=== PATIENT | female | born 1985 | race American Indian/Alaskan Native ===

== ENCOUNTER 2018-09-15 18:52 | Emergency (ER) | payer OTHER ==
[2018-09-15] MEDS ORDERED: NACL 0.9% 1000 ML 1,000 ML IV ONE ×2 (19:55→20:35)
[2018-09-15] MEDS ORDERED: TORADOL IV ONE (20:07)
[2018-09-15] MEDS ORDERED: ZOFRAN IV ONE (20:07)
[2018-09-15 20:34] LABS: Basophils # (Auto) 0.1 K/mm3 (0.0-0.1); Basophils % (Auto) 0.4 % (0.0-1.8); Hematocrit 41.5 % (30.3-42.9); Hemoglobin 13.7 gm/dl (10.1-14.3); Lymphocytes % (Auto) 6.9 % (13.4-35.0); Mean Corpuscular HGB Conc 33 % (30-34); Mean Corpuscular Volume 89 fl (79-97); Monocytes % (Auto) 7.4 % (0.0-7.3); Platelet Count 354 K/mm3 (140-440); Red Blood Count 4.66 M/mm3 (3.65-5.03); Red Cell Distribution Width 14.3 % (13.2-15.2)
--- NOTE | 2018-09-15 20:35 | Emergency Department Report ---
ED General Adult HPI - General Chief complaint: Nausea/Vomiting/Diarrhea Stated complaint: ABD PAIN/N/V/D Time Seen by Provider: 09/15/18 19:58 Source: EMS Mode of arrival: Wheelchair Limitations: No Limitations - History of Present Illness Initial comments: Patient is a 33-year-old femalePast medical history who presents with nausea vomiting and diarrhea as being going on for the last couple of hours. Patient states that she drinks some bad orange soda and since then she's been having multiple bouts of emesis. She also states that she has some abdominal pain as generalized doesn't radiate anywhere it's intermittent it is a 10 out of 10 pain. Patient has no chest pain or no shortness of breath. Her vomitus is nonbloody nonbilious. Severity scale (0 -10): 10 - Related Data Previous Rx's Medication Instructions Recorded Last Taken Type Naproxen [Naprosyn] 500 mg PO BID #21 tablet 09/15/18 Unknown Rx Ondansetron [Zofran Odt] 4 mg PO Q8HR #21 tab.rapdis 09/15/18 Unknown Rx Allergies Allergy/AdvReac Type Severity Reaction Status Date / Time No Known Allergies Allergy Unverified 09/15/18 19:54 ED Review of Systems ROS: Stated complaint: ABD PAIN/N/V/D Other details as noted in HPI Constitutional: denies: chills, fever Eyes: denies: eye pain, eye discharge, vision change ENT: denies: ear pain, throat pain Respiratory: denies: cough, shortness of breath, wheezing Cardiovascular: denies: chest pain, palpitations Endocrine: no symptoms reported Gastrointestinal: nausea, vomiting, diarrhea. denies: abdominal pain Genitourinary: denies: urgency, dysuria, discharge Musculoskeletal: denies: back pain, joint swelling, arthralgia Skin: denies: rash, lesions Neurological: denies: headache, weakness, paresthesias Psychiatric: denies: anxiety, depression Hematological/Lymphatic: denies: easy bleeding, easy bruising ED Past Medical Hx - Past Medical History Previous Medical History?: No - Surgical History Past Surgical History?: No - Social History Smoking Status: Never Smoker Substance Use Type: None, Alcohol - Medications Home Medications: Home Medications Medication Instructions Recorded Confirmed Last Taken Type Naproxen [Naprosyn] 500 mg PO BID #21 tablet 09/15/18 Unknown Rx Ondansetron [Zofran Odt] 4 mg PO Q8HR #21 tab.rapdis 09/15/18 Unknown Rx ED Physical Exam - General Limitations: No Limitations General appearance: alert, in no apparent distress - Head Head exam: Present: atraumatic, normocephalic - Eye Eye exam: Present: normal appearance - ENT ENT exam: Present: mucous membranes moist - Neck Neck exam: Present: normal inspection - Respiratory Respiratory exam: Present: normal lung sounds bilaterally. Absent: respiratory distress - Cardiovascular Cardiovascular Exam: Present: regular rate, normal rhythm. Absent: systolic murmur, diastolic murmur, rubs, gallop - GI/Abdominal GI/Abdominal exam: Present: soft, normal bowel sounds - Extremities Exam Extremities exam: Present: normal inspection - Back Exam Back exam: Present: normal inspection - Neurological Exam Neurological exam: Present: alert, oriented X3 - Psychiatric Psychiatric exam: Present: normal affect, normal mood - Skin Skin exam: Present: warm, dry, intact, normal color. Absent: rash ED Course Vital Signs 09/15/18 09/15/18 09/15/18 19:10 20:07 20:20 Temperature 98.2 F 97.8 F Pulse Rate 126 H 86 Respiratory 13 15 Rate Blood Pressure 123/76 Blood Pressure 116/83 [Right] O2 Sat by Pulse 100 100 Oximetry ED Medical Decision Making - Lab Data Result diagrams: 09/15/18 20:11 09/15/18 20:11 Lab Results 09/15/18 09/15/18 09/15/18 Range/Units 20:11 20:11 20:11 WBC 13.7 H (4.5-11.0) K/mm3 RBC 4.66 (3.65-5.03) M/mm3 Hgb 13.7 (10.1-14.3) gm/dl Hct 41.5 (30.3-42.9) % MCV 89 (79-97) fl MCH 29 (28-32) pg MCHC 33 (30-34) % RDW 14.3 (13.2-15.2) % Plt Count 354 (140-440) K/mm3 Lymph % (Auto) 6.9 L (13.4-35.0) % [place] % (Auto) 7.4 H (0.0-7.3) % Eos % (Auto) 0.0 (0.0-4.3) % Baso % (Auto) 0.4 (0.0-1.8) % Lymph # 1.0 L (1.2-5.4) K/mm3 [place] # 1.0 H (0.0-0.8) K/mm3 Eos # 0.0 (0.0-0.4) K/mm3 Baso # 0.1 (0.0-0.1) K/mm3 Seg Neutrophils % 85.3 H (40.0-70.0) % Seg Neutrophils # 11.7 H (1.8-7.7) K/mm3 Sodium 143 (137-145) mmol/L Potassium 3.4 L (3.6-5.0) mmol/L Chloride 99.4 (98-107) mmol/L Carbon Dioxide 21 L (22-30) mmol/L Anion Gap 26 mmol/L BUN 8 (7-17) mg/dL Creatinine 0.8 (0.7-1.2) mg/dL Estimated GFR > 60 ml/min BUN/Creatinine Ratio 10 % Glucose 92 (65-100) mg/dL Calcium 9.5 (8.4-10.2) mg/dL Total Bilirubin 0.60 (0.1-1.2) mg/dL AST 32 (5-40) units/L ALT 19 (7-56) units/L Alkaline Phosphatase 61 (35-129) units/L Total Protein 8.1 (6.3-8.2) g/dL Albumin 4.7 (3.9-5) g/dL Albumin/Globulin Ratio 1.4 % HCG, Qual Negative (Negative) - Medical Decision Making Chief Medical diagnosis: Food poisoning Differential medical diagnosis: Dehydration, gastroenteritis I will get CBC, BMP, hCG serum, IV antiemetic and IV fluids Patient is feeling better and has tolerated by mouth I will send patient home with Zofran and naproxen discussed plan with patient patient agrees with plan additional verbal discharge instructions were given Critical care attestation.: If time is entered above; I have spent that time in minutes in the direct care of this critically ill patient, excluding procedure time. ED Disposition Clinical Impression: Food poisoning Qualifiers: Encounter type: initial encounter Injury intent: accidental or unintentional Qualified Code(s): T62.91XA - Toxic effect of unspecified noxious substance eaten as food, accidental (unintentional), initial encounter Nausea and vomiting Qualifiers: Vomiting type: unspecified Vomiting Intractability: unspecified Qualified Code(s): R11.2 - Nausea with vomiting, unspecified Disposition: DC-01 TO HOME OR SELFCARE Is pt being admited?: No Does the pt Need Aspirin: No Condition: Stable Instructions: Food Poisoning (ED) Prescriptions: Naproxen [Naprosyn] 500 mg PO BID #21 tablet Ondansetron [Zofran Odt] 4 mg PO Q8HR #21 tab.rapdis Referrals: ES REYES MD [Primary Care Provider] - 3-5 Days
[2018-09-15 21:05] LABS: Alanine Aminotransferase 19 units/L (7-56); Albumin 4.7 g/dL (3.9-5); BUN/Creatinine Ratio 10; Blood Urea Nitrogen 8 mg/dL (7-17); Calcium 9.5 mg/dL (8.4-10.2); Hemolysis Index 4
[2018-09-15 22:06] VITALS: BP 133/72
== END 2018-09-15 22:08 | disposition home or self-care (01) ==
LOC: ED 18:52
DX: T62.8X1A Toxic effect of other specified noxious substances eaten as food, accidental (unintentional), initial encounter (principal); R11.2 Nausea with vomiting, unspecified; Y92.89 Other specified places as the place of occurrence of the external cause
CPT/HCPCS: 36415; 80053; 84703; 85025; 96361; 96374; 96375; 99283; J1885; J2405; J7030

== ENCOUNTER 2019-04-07 13:53 | Emergency (ER) | payer OTHER ==
[2019-04-07 15:00] VITALS: BP 114/73
--- NOTE | 2019-04-07 15:02 | Event Note ---
ED Screening Note Date of service: 04/07/19 Time: 14:57 ED Screening Note: This is a 34 y.o. F. that presents to the ER with vaginal discharge with odor x 1 month. Patient found something in partner phone stating trichomonas and worried. LMP 03/24/2019 This initial assessment/diagnostic orders/clinical plan/treatment(s) is/are subject to change based on patients health status, clinical progression and re- assessment by fellow clinical providers in the ED. Further treatment and workup at subsequent clinical providers discretion. Patient/guardian urged not to elope from the ED as their condition may be serious if not clinically assessed and managed. Initial orders include: Labs and pelvic pain
[2019-04-07] MEDS ORDERED: FLAGYL PO ONE (15:15)
[2019-04-07] MEDS ORDERED: ROCEPHIN IM ONE (15:15)
[2019-04-07] MEDS ORDERED: XYLOCAINE 1% MPF 5 mL INFILTRATI ONE (15:15)
[2019-04-07] MEDS ORDERED: ZITHROMAX PO ONE (15:15)
--- NOTE | 2019-04-07 15:36 | Emergency Department Report ---
ED Female HPI - General Chief complaint: Urogenital-Female Stated complaint: POSSIBLE STD Time Seen by Provider: 04/07/19 14:57 Source: patient Mode of arrival: Ambulatory Limitations: No Limitations - History of Present Illness Initial comments: Patient is a 34-year-old Female is presenting with 2 days of crampy lower abdominal discomfort and vaginal discharge. Patient states she has evidence that her boyfriend cheated on her and had been treated for Trichomonas. Patient denies any nausea vomiting fevers chills at this time. Patient's lower a bdominal discomfort is rated a 3 out of 10 in severity. - Related Data Previous Rx's Medication Instructions Recorded Last Taken Type Naproxen [Naprosyn] 500 mg PO BID #21 tablet 09/15/18 Unknown Rx Ondansetron [Zofran Odt] 4 mg PO Q8HR #21 tab.rapdis 09/15/18 Unknown Rx Allergies Allergy/AdvReac Type Severity Reaction Status Date / Time No Known Allergies Allergy Verified 04/07/19 14:06 ED Review of Systems ROS: Stated complaint: POSSIBLE STD Other details as noted in HPI Comment: All other systems reviewed and negative ED Past Medical Hx - Past Medical History Previous Medical History?: No - Surgical History Past Surgical History?: No - Social History Smoking Status: Never Smoker Substance Use Type: None - Medications Home Medications: Home Medications Medication Instructions Recorded Confirmed Last Taken Type Naproxen [Naprosyn] 500 mg PO BID #21 tablet 09/15/18 Unknown Rx Ondansetron [Zofran Odt] 4 mg PO Q8HR #21 tab.rapdis 09/15/18 Unknown Rx ED Physical Exam - General Limitations: No Limitations General appearance: alert, in no apparent distress - Head Head exam: Present: atraumatic, normocephalic - Eye Eye exam: Present: normal appearance, PERRL, EOMI - ENT ENT exam: Present: mucous membranes moist - Respiratory Respiratory exam: Absent: respiratory distress - GI/Abdominal GI/Abdominal exam: Present: soft, tenderness (mild suprapubic). Absent: distended, guarding, rebound ED Course Vital Signs 04/07/19 14:58 Temperature 99.5 F Pulse Rate 95 H Respiratory 16 Rate Blood Pressure 114/73 [Left] O2 Sat by Pulse 99 Oximetry ED Medical Decision Making - Medical Decision Making Patient is 34-year-old black female SE exposure is now having some mild early symptoms. Patient treated with antibiotics will be discharged home. Patient to follow with medical records for the results of her culture. Critical care attestation.: If time is entered above; I have spent that time in minutes in the direct care of this critically ill patient, excluding procedure time. ED Disposition Clinical Impression: STD exposure Vaginitis Qualifiers: Chronicity: acute Qualified Code(s): N76.0 - Acute vaginitis Disposition: TO HOME OR SELFCARE Is pt being admited?: No Does the pt Need Aspirin: No Condition: Stable Instructions: Sexually Transmitted Diseases (ED), Safe Sex (ED) Referrals: DELORES JACOBSEN MD [Primary Care Provider] - 3-5 Days Time of Disposition: 15:36
== END 2019-04-07 16:48 | disposition home or self-care (01) ==
LOC: ED 13:53
DX: N76.0 Acute vaginitis (principal); B96.89 Other specified bacterial agents as the cause of diseases classified elsewhere; Z20.2 Contact with and (suspected) exposure to infections with a predominantly sexual mode of transmission
CPT/HCPCS: 87591; 96372; 99282; J0696

== ENCOUNTER 2019-10-16 11:56 | Emergency (ER) | payer OTHER ==
[2019-10-16 13:44] VITALS: BP 101/72
--- NOTE | 2019-10-16 13:47 | Emergency Department Report ---
{null, Chief Complaint: Urogenital-Female Stated Complaint: CHECK UP STD Time Seen by Provider: 10/16/19 13:43 - HPI History of Present Illness: states she reports for routine STD testing she states she wanted to know the results of her test from march 2019 G/C were both negative from march 2019 states that occasionally she noticed after using a certain soap she had a mild odor she denies any fever, n/v/d, abdominal pain, pelvic pain vitals are normal will refer the patient to [facility] and the health department for further evaluation and management advised pt to please have a full STD panel by the health department or [facility] discussed return precautions with pt medical screening performed there is no threat to life or limb at this time she has no fever, no abd pain, no n/v/d, no pelvic pain, no urinary sx - Exam Vital Signs: Vital Signs 10/16/19 12:05 Temperature 98.4 F Pulse Rate 100 H Respiratory 16 Rate Blood Pressure 101/72 O2 Sat by Pulse 99 Oximetry MSE screening note: Focused history and physical exam performed. ED Disposition for MSE Clinical Impression: Concern about STD in female without diagnosis Disposition: Z-07 MED SCREENING EXAM-LEFT Is pt being admited?: No Does the pt Need Aspirin: No Condition: Stable Instructions: Sexually Transmitted Diseases (ED), Safe Sex (ED) Additional Instructions: please go to the health department or the [facility] for a full STD panel. please have partner tested and treated as well. avoid sexual intercourse. return to the emergency room for any new or worsening symptoms. Referrals: [facility] [Outside] - 3-5 Days [facility] [Provider Group] - 3-5 Days [facility] [Provider Group] - 3-5 Days [facility] [Provider Group] - 3-5 Days Time of Disposition: 13:46 Print Language: MALAY }
== END 2019-10-16 13:51 | disposition left against medical advice (07) ==
LOC: ED 11:56
DX: A64 Unspecified sexually transmitted disease (principal)
CPT/HCPCS: 99281

== ENCOUNTER 2019-10-29 00:31 | Emergency (ER) | payer OTHER ==
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
[2019-10-29 01:58] VITALS: BP 129/85
== END 2019-10-29 02:00 | disposition home or self-care (01) ==
LOC: ED 00:31
DX: S20.469A Insect bite (nonvenomous) of unspecified back wall of thorax, initial encounter (principal); L24.9 Irritant contact dermatitis, unspecified cause; L29.8 Other pruritus; F17.200 Nicotine dependence, unspecified, uncomplicated; F41.9 Anxiety disorder, unspecified; F20.0 Paranoid schizophrenia; Z88.4 Allergy status to anesthetic agent; Z79.899 Other long term (current) drug therapy; W57.XXXA Bitten or stung by nonvenomous insect and other nonvenomous arthropods, initial encounter; Y93.89 Activity, other specified; Y92.89 Other specified places as the place of occurrence of the external cause; Y99.8 Other external cause status
CPT/HCPCS: 99282

== ENCOUNTER 2020-05-23 12:41 | Emergency (ER) | payer OTHER ==
[2020-05-23 13:08] VITALS: BP 103/55
--- NOTE | 2020-05-23 13:52 | Emergency Department Report ---
Minor Respiratory - HPI Chief Complaint: Upper Respiratory Infection Stated Complaint: CHECK UP Time Seen by Provider: 05/23/20 13:47 Duration: Several months Minor Respiratory: Yes Cough (Intermittent productive), No Shortness of Breath, No Fever Other History: 35-year-old -[place] female presents to the emergency room stating she is having a productive cough for several months. Patient states that she was treated for BV as well as mycoplasma urea and feels that because she swallowed some semen doing oral sex that she has mycoplasma of her lungs. Patient denies any fever or chills. She does admit to fatigue. She has an appointment with her primary care doctor on Tuesday. She has spoken with her [employer] and they informed her that she was cleared for her infection in the vagi nal area. Patient states that she was placed on azithromycin. Patient reports her last menstrual period with Labor Day. ED Review of Systems ROS: Stated complaint: CHECK UP Other details as noted in HPI Comment: All other systems reviewed and negative Respiratory: cough ED Past Medical Hx - Past Medical History Previous Medical History?: No - Surgical History Past Surgical History?: No - Social History Smoking Status: Never Smoker - Medications Home Medications: Home Medications Medication Instructions Recorded Confirmed Last Taken Type Naproxen [Naprosyn] 500 mg PO BID #21 tablet 09/15/18 Unknown Rx Ondansetron [Zofran Odt] 4 mg PO Q8HR #21 tab.rapdis 09/15/18 Unknown Rx Triamcinolone Acetonide 15 gm TP BID #1 tube 10/29/19 Unknown Rx [Triamcinolone Acetonide Oint 0.5%] cephALEXin [Keflex] 500 mg PO Q8HR #21 cap 10/29/19 Unknown Rx hydrOXYzine PAMOATE [Vistaril] 25 mg PO Q6HR PRN #24 capsule 10/29/19 Unknown Rx Doxycycline Hyclate 100 mg PO 20 #10 tablet. 05/23/20 Unknown Rx Minor Respiratory Exam - Exam General: Vital signs noted. No distress. Alert and acting appropriately. HEENT: Yes Moist Mucous Membranes, No Pharyngeal Erythema, No Pharyngeal Exudates, No Rhinorrhea, No Conjuctival Injection, No Frontal Tenderness, No Maxillary Tenderness Ear: Neither TM Bulge, Neither TM Erythema, Neither EAC Pain, Neither EAC Discharge Neck: Yes Supple, No Adenopathy Lungs: Yes Good Air Exchange, No Wheezes, No Ronchi, No Stridor, No Cough, No Labored Respirations, No Retractions, No Use of Accessory Muscles, No Other Abnormal Lung Sounds Heart: Yes Regular, No Murmur Abdomen: Yes Normal Bowel Sounds, No Tenderness, No Peritoneal Signs Skin: No Rash, No Edema Neurologic: Alert and oriented, no deficits. Musculoskeletal: Unremarkable. ED Course Vital Signs 05/23/20 13:05 Temperature 98.7 F Respiratory 16 Rate Blood Pressure 103/55 O2 Sat by Pulse 94 Oximetry ED Medical Decision Making - Radiology Data Radiology results: report reviewed Patient: YASMIN STOKES MR# : [id number] : 1985 Acct:[id number] Age/Sex: 35 / F ADM Date: 05/23/20 Loc: ED Attending Dr: Ordering Physician: SAGAR KIRKPATRICK MD Date of Service: 05/23/20 Procedure(s): XR chest routine 2V Accession Number(s): [id number] cc: SAGAR KIRKPATRICK MD Fluoro Time In Minutes: CHEST 2 VIEWS INDICATION: Cough, fatigue. COMPARISON: None FINDINGS: SUPPORT DEVICES: None. HEART: Within normal limits. LUNGS/PLEURA: Aside from a couple scattered calcified granulomata, the lungs are clear. No pneumothorax. ADDITIONAL FINDINGS: None. IMPRESSION: 1. No acute findings. Signer Name: Irving Smith MD Signed: 05/23/2020 2:28 PM Workstation Name: [id number] Transcribed By: CATHY Dictated By: Irving Smith MD Electronically Authenticated By: Irving Smith MD Signed Date/Time: 05/23/201427 DD/ 26 TD/TT: - Medical Decision Making 35-year-old -[place] female presents to the emergency room stating she is having a productive cough for several months. Patient states that she was treated for BV as well as mycoplasma urea and feels that because she swallowed some semen doing oral sex that she has mycoplasma of her lungs. Patient denies any fever or chills. She does admit to fatigue. She has an appointment with her primary care doctor on Tuesday. She has spoken with her [employer] and they informed her that she was cleared for her infection in the vaginal area. Patient states that she was placed on azithromycin. Patient reports her last menstrual period with . Chest x-ray has been ordered. Chest x-ray is negative for any acute findings. Patient will be referred to a analogy for further evaluation. Patient can try [id number] cough medication, Zyrtec's. Critical care attestation.: If time is entered above; I have spent that time in minutes in the direct care of this critically ill patient, excluding procedure time. ED Disposition Clinical Impression: Chronic cough Disposition: DC-01 TO HOME OR SELFCARE Is pt being admited?: No Does the pt Need Aspirin: No Condition: Stable Instructions: Chronic Cough (ED) Additional Instructions: Chest x-ray is negative for any acute findings no pneumonia. I do recommend that she try some [id number] Zyrtec's or Robitussin and to follow-up with the web merchant. Prescriptions: Doxycycline Hyclate 100 mg PO 20 #10 tablet.dr Referrals: JAZMIN AUSTIN MD [Staff Physician] - 3-5 Days
--- NOTE | 2020-05-23 14:32 | XRay Report ---
CHEST 2 VIEWS INDICATION: Cough, fatigue. COMPARISON: None FINDINGS: SUPPORT DEVICES: None. HEART: Within normal limits. LUNGS/PLEURA: Aside from a couple scattered calcified granulomata, the lungs are clear. No pneumotho rax. ADDITIONAL FINDINGS: None. IMPRESSION: 1. No acute findings. Signer Name: Irving Smith MD Signed: 05/23/2020 2:28 PM Workstation Name: [id number]
== END 2020-05-23 16:12 | disposition home or self-care (01) ==
LOC: ED 12:41
DX: R05 Cough (principal); R53.83 Other fatigue; Z79.899 Other long term (current) drug therapy; Z88.8 Allergy status to other drugs, medicaments and biological substances
CPT/HCPCS: 71046

== ENCOUNTER 2020-06-01 06:38 | Emergency (ER) | payer OTHER ==
[2020-06-01 03:22] VITALS: BP 146/90
--- NOTE | 2020-06-01 08:49 | Emergency Department Report ---
ED Recheck HPI - General Chief Complaint: Medical Clearance Stated Complaint: MEDICAL CLEARANCE Time Seen by Provider: 06/01/20 07:59 Source: patient Mode of arrival: Ambulatory Limitations: No Limitations - History of Present Illness Initial Comments: This is a 35-year-old female nontoxic, well nourished in appearance, no acute signs of distress presents to the ED more Doxy prescription. Patient stated that she was diagnosed with pneumonia on 05/23/2020 and received doxycycline. Patient stated that she went on [employer] and [employer] stated that she needs to take more medication. Patient currently stated that her symptoms of cough and upper respiratory condition is currently resolved and subsided. Patient stated that she does feel better but is concerned with under treating infection. Patient denies any recent travels, long car, recent hospital stays. Patient denies any calf pain or calf tenderness. Patient denies any chest pain, short of breath, fever, chills, nausea, vomiting, hemoptysis, numbness, tingling, headache or stiff neck. Patient stated allergies to lidocaine. Returns Today for: request for prescription Symptoms Since Prior Visit: no new symptoms, improved Associated Symptoms: none. denies: fever, chills, chest pain, shortness of breath, rash, malaise, nasuea, abdominal pain - Related Data Previous Rx's Medication Instructions Recorded Last Taken Type Naproxen [Naprosyn] 500 mg PO BID #21 tablet 09/15/18 Unknown Rx Ondansetron [Zofran Odt] 4 mg PO Q8HR #21 tab.rapdis 09/15/18 Unknown Rx Triamcinolone Acetonide 15 gm TP BID #1 tube 10/29/19 Unknown Rx [Triamcinolone Acetonide Oint 0.5%] cephALEXin [Keflex] 500 mg PO Q8HR #21 cap 10/29/19 Unknown Rx hydrOXYzine PAMOATE [Vistaril] 25 mg PO Q6HR PRN #24 capsule 10/29/19 Unknown Rx Doxycycline Hyclate 100 mg PO 20 #10 tablet. 05/23/20 Unknown Rx Allergies Allergy/AdvReac Type Severity Reaction Status Date / Time lidocaine Allergy Shortness Verified 10/29/19 00:35 of Breath ED Review of Systems ROS: Stated complaint: MEDICAL CLEARANCE Other details as noted in HPI Constitutional: denies: chills, fever Eyes: denies: eye pain, eye discharge, vision change ENT: denies: ear pain, throat pain Respiratory: denies: cough, shortness of breath, wheezing Cardiovascular: denies: chest pain, palpitations Endocrine: no symptoms reported Gastrointestinal: denies: abdominal pain, nausea, diarrhea Genitourinary: denies: urgency, dysuria, discharge Musculoskeletal: denies: back pain, joint swelling, arthralgia Skin: denies: rash, lesions Neurological: denies: headache, weakness, paresthesias Psychiatric: denies: anxiety, depression Hematological/Lymphatic: denies: easy bleeding, easy bruising ED Past Medical Hx - Past Medical History Previous Medical History?: No - Surgical History Past Surgical History?: No - Social History Smoking Status: Never Smoker Substance Use Type: None - Medications Home Medications: Home Medications Medication Instructions Recorded Confirmed Last Taken Type Naproxen [Naprosyn] 500 mg PO BID #21 tablet 09/15/18 Unknown Rx Ondansetron [Zofran Odt] 4 mg PO Q8HR #21 tab.rapdis 09/15/18 Unknown Rx Triamcinolone Acetonide 15 gm TP BID #1 tube 10/29/19 Unknown Rx [Triamcinolone Acetonide Oint 0.5%] cephALEXin [Keflex] 500 mg PO Q8HR #21 cap 10/29/19 Unknown Rx hydrOXYzine PAMOATE [Vistaril] 25 mg PO Q6HR PRN #24 capsule 10/29/19 Unknown Rx Doxycycline Hyclate 100 mg PO 20 #10 tablet. 05/23/20 Unknown Rx ED Physical Exam - General Limitations: No Limitations General appearance: alert, in no apparent distress - Head Head exam: Present: atraumatic, normocephalic - Eye Eye exam: Present: normal appearance - ENT ENT exam: Present: normal exam, normal orophraynx - Neck Neck exam: Present: normal inspection, full ROM. Absent: tenderness, meningismus, lymphadenopathy - Respiratory Respiratory exam: Present: normal lung sounds bilaterally. Absent: respiratory distress, wheezes, rales, rhonchi, stridor, chest wall tenderness, accessory muscle use, decreased breath sounds, prolonged expiratory - Cardiovascular Cardiovascular Exam: Present: regular rate, normal rhythm, normal heart sounds. Absent: bradycardia, tachycardia, irregular rhythm, systolic murmur, diastolic murmur, rubs, gallop - Extremities Exam Extremities exam: Present: full ROM - Back Exam Back exam: Present: full ROM - Neurological Exam Neurological exam: Present: alert, oriented X3, normal gait - Psychiatric Psychiatric exam: Present: normal affect, normal mood - Skin Skin exam: Present: warm, dry, intact, normal color. Absent: rash ED Course Vital Signs 06/01/20 06/01/20 03:01 03:05 Temperature 99.4 F Pulse Rate 85 Respiratory 16 Rate Blood Pressure 146/90 O2 Sat by Pulse 99 Oximetry - Reevaluation(s) Reevaluation #1: 06/01/20 08:48 Patient is speaking in full sentences with no signs of distress noted. ED Recheck MDM - Medical Decision Making 35-year-old female that presents with concerns for undertreated pneumonia. Chest x-ray that was reviewed on 05/23/2020 showed negative for pneumonia or any other respiratory conditions. Patient's vital signs are currently stable. Examination is unremarkable. At this time patient does not need further treatment. Patient was instructed to follow-up with a primary care doctor in 3- 5 days or if symptoms worsen and continue return to emergency room as soon as possible. At time of discharge, the patient does not seem toxic or ill in appearance. No acute signs of distress noted. Patient agrees to discharge treatment plan of care. No further questions noted by the patient. Critical care attestation.: If time is entered above; I have spent that time in minutes in the direct care of this critically ill patient, excluding procedure time. ED Disposition Clinical Impression: Medication refill Disposition: MED SCREENING EXAM-LEFT Is pt being admited?: No Does the pt Need Aspirin: No Condition: Stable Additional Instructions: Follow-up with a primary care doctor in 3-5 days or if symptoms worsen and continue return to emergency room as soon as possible. Referrals: LINDEN MUJICA MD [Primary Care Provider] - 3-5 Days HOOD CALLEJAS MD [Staff Physician] - 3-5 Days Time of Disposition: 08:49
== END 2020-06-01 09:29 | disposition left against medical advice (07) ==
LOC: ED 06:38
DX: J18.9 Pneumonia, unspecified organism (principal); Z76.0 Encounter for issue of repeat prescription; Z79.899 Other long term (current) drug therapy; Z88.8 Allergy status to other drugs, medicaments and biological substances; Z53.21 Procedure and treatment not carried out due to patient leaving prior to being seen by health care provider

== ENCOUNTER 2020-07-23 21:16 | Emergency (ER) | payer OTHER ==
[2020-07-24 01:23] VITALS: BP 117/80
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
== END 2020-07-24 03:20 | disposition home or self-care (01) ==
LOC: ED 21:16
DX: S80.02XA Contusion of left knee, initial encounter (principal); Z79.899 Other long term (current) drug therapy; Z88.8 Allergy status to other drugs, medicaments and biological substances; V49.49XA Driver injured in collision with other motor vehicles in traffic accident, initial encounter; Y93.89 Activity, other specified; Y92.488 Other paved roadways as the place of occurrence of the external cause; Y99.8 Other external cause status
CPT/HCPCS: 99282